=== PATIENT | female | born 2000 | race American Indian/Alaskan Native ===

== ENCOUNTER 2019-03-24 11:29 | Emergency (ER) | payer MEDICAID ==
[2019-03-24 11:39] VITALS: BP 103/53
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
== END 2019-03-24 12:12 | disposition home or self-care (01) ==
LOC: ED 11:29
DX: S39.012A Strain of muscle, fascia and tendon of lower back, initial encounter (principal); T14.8XXA Other injury of unspecified body region, initial encounter; X58.XXXA Exposure to other specified factors, initial encounter; Y99.0 Civilian activity done for income or pay; Y93.89 Activity, other specified; Y92.59 Other trade areas as the place of occurrence of the external cause
CPT/HCPCS: 99282

== ENCOUNTER 2020-02-04 10:59 | Emergency (ER) | payer MEDICAID ==
[2020-02-04 11:28] VITALS: BP 96/62
--- NOTE | 2020-02-04 11:33 | Emergency Department Report ---
- General Chief Complaint: Upper Respiratory Infection Stated Complaint: NOT FEELING WELL Time Seen by Provider: 02/04/20 11:23 Source: patient Mode of arrival: Ambulatory Limitations: No Limitations - History of Present Illness Initial Comments: This is a 19-year-old female nontoxic well in appearnce with no signs of distress presents with body aches, rhinnorrhea, lost of teaste and smell, productive cough x several days. Patient denies any chest pain, shortness of breathe, fever, chills, nausea, vomiting, headache, stiff neck, abdominal pain, numbness or tingling. Patient denies any recent travels, long car rides, or recent hospital stays. Denies any allergies or significant PMH. MD Complaint: cough, rhinorrhea, nasal congestion -: days(s) Consistency: constant Improves With: nothing Worsens With: nothing Associated Symptoms: rhinorrhea, nasal congestion, cough. denies: fever, chills, myalgias, diaphoresis, headache, sore throat, stiff neck, chest pain, shortness of breath, abdominal pain, nausea, vomiting, diarrhea, dysuria, rash, confusion, right sweats, weight loss, epistaxis, hoarseness, ear pain Treatments Prior to Arrival: none - Related Data Previous Rx's Medication Instructions Recorded Last Taken Type Ibuprofen [Motrin 600 MG tab] 600 mg PO Q8H PRN #20 tablet 03/24/19 Unknown Rx Acetaminophen [Acetaminophen 8 650 mg PO Q8H PRN #12 tablet.er 02/04/20 Unknown Rx Hour] Benzonatate [Tessalon Perles] 100 mg PO Q12H PRN #12 capsule 02/04/20 Unknown Rx Allergies Allergy/AdvReac Type Severity Reaction Status Date / Time No Known Allergies Allergy Verified 03/24/19 11:38 ED Review of Systems ROS: Stated complaint: NOT FEELING WELL Other details as noted in HPI Constitutional: denies: chills, fever Eyes: denies: eye pain, eye discharge, vision change ENT: denies: ear pain, throat pain Respiratory: cough. denies: shortness of breath, wheezing Cardiovascular: denies: chest pain, palpitations Endocrine: no symptoms reported Gastrointestinal: denies: abdominal pain, nausea, diarrhea Genitourinary: denies: urgency, dysuria, discharge Musculoskeletal: denies: back pain, joint swelling, arthralgia Skin: denies: rash, lesions Neurological: denies: headache, weakness, paresthesias Psychiatric: denies: anxiety, depression Hematological/Lymphatic: denies: easy bleeding, easy bruising ED Past Medical Hx - Past Medical History Previous Medical History?: No - Surgical History Past Surgical History?: No - Social History Smoking Status: Never Smoker Substance Use Type: None - Medications Home Medications: Home Medications Medication Instructions Recorded Confirmed Last Taken Type Ibuprofen [Motrin 600 MG tab] 600 mg PO Q8H PRN #20 tablet 03/24/19 Unknown Rx Acetaminophen [Acetaminophen 8 650 mg PO Q8H PRN #12 tablet.er 02/04/20 Unknown Rx Hour] Benzonatate [Tessalon Perles] 100 mg PO Q12H PRN #12 capsule 02/04/20 Unknown Rx ED Physical Exam - General Limitations: No Limitations General appearance: alert, in no apparent distress - Head Head exam: Present: atraumatic, normocephalic - Eye Eye exam: Present: normal appearance - Neck Neck exam: Present: normal inspection, full ROM. Absent: tenderness, meningismus, lymphadenopathy - Respiratory Respiratory exam: Present: normal lung sounds bilaterally. Absent: respiratory distress, wheezes, rales, rhonchi, stridor, chest wall tenderness, accessory muscle use, decreased breath sounds, prolonged expiratory - Cardiovascular Cardiovascular Exam: Present: regular rate, normal rhythm, normal heart sounds. Absent: bradycardia, tachycardia, irregular rhythm, systolic murmur, diastolic murmur, rubs, gallop - Extremities Exam Extremities exam: Present: full ROM - Back Exam Back exam: Present: full ROM. Absent: tenderness, CVA tenderness (R), CVA tenderness (L), muscle spasm, paraspinal tenderness, vertebral tenderness, rash noted - Neurological Exam Neurological exam: Present: alert, oriented X3, normal gait - Psychiatric Psychiatric exam: Present: normal affect, normal mood - Skin Skin exam: Present: warm, dry, intact, normal color. Absent: rash ED Course Vital Signs 02/04/20 02/04/20 11:26 11:28 Temperature 98.3 F Pulse Rate 89 Respiratory 18 Rate Blood Pressure 96/62 O2 Sat by Pulse 96 Oximetry - Reevaluation(s) Reevaluation #1: 02/04/20 11:34 Patient is speaking in full sentences with no signs of distress noted. ED Medical Decision Making - Radiology Data Referring Physician: JOSH DOBBS Patient Name: RANJITH TYSON Date of : 2000 Sex: Female Report Date: 2020-02-04 Report Status: Finalized [facility] [address] [place] [address] XRay Report Signed Patient: RANJITH TYSON MR#: [id number] : 2000 Acct:[id number] Age/Sex: 19 / F ADM Date: 02/04/20 Loc: ED Attending Dr: Nilay monroy Physician: JOSH ODBBS NP Date of Service: 02/04/20 Procedure(s): XR chest routine 2V Accession Number(s): [id number] cc: JOSH DOBBS NP Fluoro Time In Minutes: CHEST 2 VIEWS INDICATION / CLINICAL INFORMATION: cough. COMPARISON: None available. FINDINGS: SUPPORT DEVICES: None. HEART / MEDIASTINUM: No significant abnormality. LUNGS / PLEURA: No significant pulmonary or pleural abnormality. No pneumothorax. ADDITIONAL FINDINGS: No significant additional findings. IMPRESSION: 1. No acute abnormality of the chest. Signer Name: Dallin Moss MD Signed: 02/04/2020 1:09 PM Workstation Name: [id number] Transcribed By: [place] Dictated By: Dallin Moss MD Electronically Authenticated By: Dallin Moss MD Signed Date/Time: 02/04/20 1309 DD/ 1308 TD/TT: - Medical Decision Making 19-year-old female that presents with covid like symptoms. Patient is stable and was examined by me. CXR is notifeid to the pt with no questions noted by the patient. Patient was educated on OTC suppurative care and medications. Will dc with tesslon perrals. Vital signs are stable. Patient was instructed to Follow-up with a primary care doctor in 3-5 days or if symptoms worsen and continue return to emergency room as soon as possible. At time of discharge, the patient does not seem toxic or ill in appearance. No acute signs of distress noted. Patient agrees to discharge treatment plan of care. No further questions noted by the patient. Critical care attestation.: If time is entered above; I have spent that time in minutes in the direct care of this critically ill patient, excluding procedure time. ED Disposition Clinical Impression: Suspected COVID-19 virus infection Disposition: DC- TO HOME OR SELFCARE Is pt being admited?: No Does the pt Need Aspirin: No Condition: Stable Instructions: COVID-19 Additional Instructions: Follow-up with a primary care doctor in 3-5 days or if symptoms worsen and continue return to the emergency department as soon as possible. Increase rest, hydration, and take Tylenol as prescribed for fever episode. Prescriptions: Acetaminophen [Acetaminophen 8 Hour] 650 mg PO Q8H PRN #12 tablet.er PRN Reason: pain/fever Benzonatate [Tessalon Perles] 100 mg PO Q12H PRN #12 capsule PRN Reason: Cough Referrals: PRIMARY CAREMD [Referring] - 3-5 Days JENA DAWKINS MD [Staff Physician] - 3-5 Days Forms: Work/School Release Form(ED)
--- NOTE | 2020-02-04 13:13 | XRay Report ---
CHEST 2 VIEWS INDICATION / CLINICAL INFORMATION: cough. COMPARISON: None available. FINDINGS: SUPPORT DEVICES: None. HEART / MEDIASTINUM: No significant abnormality. LUNGS / PLEURA: No significant pulmonary or pleural abnormality. No pneumothorax. ADDITIONAL FINDINGS: No significant additional findings. IMPRESSION: 1. No acute abnormality of the chest. Signer Name: Dallin Moss MD Signed: 02/04/2020 1:09 PM Workstation Name: [id number]
== END 2020-02-04 15:06 | disposition home or self-care (01) ==
LOC: ED 10:59
DX: J34.89 Other specified disorders of nose and nasal sinuses (principal); Z20.828 Contact with and (suspected) exposure to other viral communicable diseases; R05 Cough; R09.81 Nasal congestion; Z79.1 Long term (current) use of non-steroidal anti-inflammatories (NSAID); Z79.899 Other long term (current) drug therapy
CPT/HCPCS: 71046

== ENCOUNTER 2021-02-05 14:04 | Emergency (ER) | payer OTHER, MEDICAID ==
[2021-02-05 15:21] VITALS: BP 107/53
[2021-02-05] MEDS ORDERED: IBUPROFEN 800 MG TAB PO ONE (15:42)
[2021-02-05] MEDS ORDERED: ACETAMINOPHEN 500 MG TAB PO ONE (15:42)
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
== END 2021-02-05 17:05 | disposition home or self-care (01) ==
LOC: ED 14:04
DX: S16.1XXA Strain of muscle, fascia and tendon at neck level, initial encounter (principal); M79.602 Pain in left arm; S29.012A Strain of muscle and tendon of back wall of thorax, initial encounter; V89.2XXA Person injured in unspecified motor-vehicle accident, traffic, initial encounter; Y93.89 Activity, other specified; Y92.411 Interstate highway as the place of occurrence of the external cause; Y99.8 Other external cause status
CPT/HCPCS: 99283

== ENCOUNTER 2021-04-20 22:14 | Emergency (ER) | payer MEDICAID, OTHER ==
[2021-04-20 22:23] VITALS: BP 100/55
== END 2021-04-21 01:30 | disposition left against medical advice (07) ==
LOC: ED 22:14
DX: J11.1 Influenza due to unidentified influenza virus with other respiratory manifestations (principal); Z53.21 Procedure and treatment not carried out due to patient leaving prior to being seen by health care provider